=== PATIENT | male | born 1975 | race Caucasian/White ===

== ENCOUNTER → 2020-03-11 14:02 | Outpatient (CLI) | payer OTHER, SELFPAY ==
--- NOTE | 2020-03-11 14:08 | DI.US.S_ITS ---
PROCEDURE: US SCROTUM INDICATIONS: RIGHT GROIN LUMP TECHNIQUE: Real-time scanning was performed of the scrotum and testicles, with image documentation. Color and pulse Doppler interrogation was performed of both testicles. COMPARISON: None. FINDINGS: Right: Testicle is normal in size at 5.4 x 2.6 x 3.6 cm, and homogenous in echotexture. Epididymis is normal in overall size and morphology. Small hydrocele. No varicoceles. Overlying scrotal skin is normal in thickness. Left: Testicle is normal in size at 5.2 x 2.9 x 3.0 cm, and homogeneous in echotexture. Epididymis is normal in overall size and morphology. Small hydrocele. No varicoceles. Overlying scrotal skin is normal in thickness. Doppler: Color and pulse Doppler demonstrate normal and symmetric arterial flow in both testicles. Lower pelvic ventral wall hernia present containing fat with fascial defect estimated at 1.9 cm. IMPRESSION: 1. Small bilateral hydroceles; otherwise normal appearance of the testicles bilaterally. 2. Fat containing lower pelvic ventral wall hernia. Dictated by: Murali YOUNG Interpreted: Sharyn Liao MD on 03/11/2020 at 14:53 Approved by: Sharyn Liao M.D. on 03/11/2020 at 16:56
== END ==
PROVIDERS: PCP Family Medicine; Referring Provider Family Medicine; Visit Provider Family Medicine
DX: N43.3 Hydrocele, unspecified (principal); K43.9 Ventral hernia without obstruction or gangrene
CPT/HCPCS: 76870

== ENCOUNTER → 2020-07-10 11:00 | Outpatient (CLI) | payer OTHER, SELFPAY ==
[2020-07-10] MEDS: COVID-19 VACC, Ad26(JANSSEN)/PF 0.5 ML IM (11:07)
== END ==
PROVIDERS: PCP Family Medicine; Visit Provider Internal Medicine
DX: Z23 Encounter for immunization (principal)
CPT/HCPCS: 0031A; 91303

== ENCOUNTER 2021-11-18 10:34 | Emergency (ER) | payer OTHER, SELFPAY ==
[2021-11-18 10:58] VITALS: BP 126/77; PULSE 77; RESP 14; TEMP 37; O2SAT 99; BMI 33.9
--- NOTE | 2021-11-18 11:02 | DI.US.S_ITS ---
PROCEDURE: US SCROTUM INDICATIONS: RIGHT SCROTAL PAIN, EDEMA TECHNIQUE: Real-time scanning was performed of the scrotum and testicles, with image documentation. Color and pulse Doppler interrogation was performed of both testicles. COMPARISON: None. FINDINGS: Right: Testicle is normal in size at 5.5 x 3.3 x 2.7 cm, and homogenous in echotexture. Epididymis is heterogeneous in appearance. Small hydrocele. No varicoceles. Overlying scrotal skin is normal in thickness. Left: Testicle is normal in size at 5.9 x 2.9 x 2.7 cm, and homogeneous in echotexture. Epididymis is normal in overall size and morphology. Small hydrocele. No varicoceles. Overlying scrotal skin is normal in thickness. Doppler: Color and pulse Doppler demonstrate normal and symmetric arterial flow in both testicles. There is increased blood flow within the right epididymis compared to the left. IMPRESSION: 1. Asymmetric increased blood flow in the right epididymis. Findings suggesting right epididymitis. 2. Small bilateral hydroceles. 3. No testicular mass. Dictated by: Celestino Garcia M.D. on 11/18/2021 at 11:52 Approved by: Celestino Garcia M.D. on 11/18/2021 at 11:55
--- NOTE | 2021-11-18 12:04 | ED.MALEGU ---
HPI - Male Genitourinary <ION Gomez - Last Filed: 11/18/21 12:38> General Chief complaint: Urogenital-Male Stated complaint: Enlarged rt testicle- sent by [facility] Time Seen by Provider: 11/18/21 12:03 Source: patient Mode of arrival: Ambulatory History of Present Illness HPI Narrative: 46-year-old male, nonsmoker, presents to the emergency department with right testicular swelling and pain x1 day. Last reported intercourse was with his the night before the swelling began. Patient denies any trauma to that area. Patient does endorse a previous history of a right-sided inguinal hernia approximately 2 years ago that they did not think needed surgical repair at that time. Patient denies any dysuria, urinary frequency or urgency or penile discharge. Related Data Previous Rx's Medication Instructions Recorded doxycycline hyclate 100 mg capsule 100 mg PO BID Epididymitis 10 days 11/18/21 #20 caps Allergies Allergy/AdvReac Type Severity Reaction Status Date / Time No Known Drug Allergies Allergy Verified 11/18/21 11:02 Review of Systems <ION Gomez - Last Filed: 11/18/21 12:38> Review of Systems Narrative: Narrative: GENERAL: Denies chills, fatigue, fever, sweats. See HPI HEENT: Denies sinus pain, ear pain, sore throat, difficulty swallowing, dizziness. RESPIRATORY: Denies dyspnea, cough, wheezing, sputum. CARDIOVASCULAR: Denies chest pain, palpitations, edema. GASTROINTESTINAL: Denies nausea, vomiting, diarrhea, constipation. : Denies dysuria, frequency, incontinence, hematuria, urinary retention, flank pain. MSK: Denies weakness, joint pain, or bony pain. SKIN: Denies rash, skin lesions, or pruritis. NEUROLOGIC: Denies weakness, dizziness, headache, numbness, confusion. PSYCHIATRIC: No concerning psychosocial issues. Patient History <ION Gomez - Last Filed: 11/18/21 12:38> Social History Smoking Status: Unknown if ever smoked Smoking Status: Unknown if ever smoked alcohol intake frequency: a few times a week Substance Use Type: does not use Exam <ION Gomez - Last Filed: 11/18/21 12:38> Narrative Exam Narrative: Exam Narrative: GENERAL: This is a well-nourished, well-developed patient, in no acute distress HEAD: Atraumatic. Normocephalic. CARDIOVASCULAR: Regular rate and rhythm without murmurs, peripheral pulses intact, cap refill <2 sec. RESPIRATORY: Breath sounds equal and clear bilaterally. No wheezes, rales, or rhonchi. No cough. No increased respiratory effort. No accessory muscle use. GASTROINTESTINAL: Abdomen soft, non-tender, nondistended without guarding or rebound. No suprapubic pain. : Right-sided inguinal hernia. Right scrotum is significantly swollen compared to left side. Positive cremasteric reflex. Mild right testicular pain with palpation of the epididymis. MSK: Moves all extremities. Normal range of motion, no clubbing or edema. Neurovascularly intact. NEURO: A&O x 3. SKIN: Warm, dry, no rashes or lesions noted. Initial Vital Signs Initial Vital Signs: Vital Signs Temperature 98.6 F 11/18/21 10:58 Pulse Rate 77 11/18/21 10:58 Respiratory Rate 14 11/18/21 10:58 Blood Pressure 126/77 11/18/21 10:58 Pulse Oximetry 99 11/18/21 10:58 Oxygen Delivery Method 11/18/21 10:58 Reviewed Penis: normal penis Scrotum: inguinal hernia and scrotal swelling <Rosario Mai DO - Last Filed: 11/19/21 08:45> Initial Vital Signs Initial Vital Signs: Vital Signs Temperature 98.6 F 11/18/21 10:58 Pulse Rate 77 11/18/21 10:58 Respiratory Rate 14 11/18/21 10:58 Blood Pressure 126/77 11/18/21 10:58 Pulse Oximetry 99 11/18/21 10:58 Oxygen Delivery Method 11/18/21 10:58 Course <ION Gomez - Last Filed: 11/18/21 12:38> Orders Ordered: ED Orders 11/18/21 11:02 US scrotum Stat Vital Signs Vital signs: Vital Signs - 8 hr 11/18/21 10:58 11/18/21 12:12 11/18/21 12:13 Temperature 98.6 F Pulse Rate 77 71 Respiratory Rate 14 Blood Pressure 126/77 127/76 Pulse Oximetry 99 98 Oxygen Delivery Method Room Air 11/18/21 12:13 Temperature Pulse Rate 70 Respiratory Rate 16 Blood Pressure Pulse Oximetry 98 Oxygen Delivery Method Room Air <Rosario Mai DO - Last Filed: 11/19/21 08:45> Orders Ordered: ED Orders 11/18/21 11:02 US scrotum Stat Vital Signs Vital signs: Vital Signs - 8 hr 11/18/21 10:58 11/18/21 12:12 11/18/21 12:13 Temperature 98.6 F Pulse Rate 77 71 Respiratory Rate 14 Blood Pressure 126/77 127/76 Pulse Oximetry 99 98 Oxygen Delivery Method Room Air 11/18/21 12:13 Temperature Pulse Rate 70 Respiratory Rate 16 Blood Pressure Pulse Oximetry 98 Oxygen Delivery Method Room Air MDM - Male Genitourinary <ION Gomez - Last Filed: 11/18/21 12:38> Differential Diagnosis Differential diagnosis: Likely epididymitis and inguinal hernia Lab Data Labs: Urine Dip Bedside Urine Glucose Negative Bedside Urine Bilirubin - Negative Bedside Urine Ketone - Negative Urine Specific [place] 1.025 Bedside Urine Occult Blood - Negative Bedside Urine pH 6.0 Bedside Urine Protein - Negative Bedside Urine Urobilinogen - Negative Bedside Urine Nitrite - Negative Bedside Urine Leukocytes - Negative Esterase Imaging Data US - Scrotum: Radiologist's Impression: [place] [address] Ultrasound Report Signed Patient: Jorge Hunter MR#: [id number] : 1975 Acct:[id number] Age/Sex: 46 / M Date of Service: 11/18/21 Loc: ED Accession Number: [id number] ?? Procedure: US scrotum Ordering Provider: Rosario Mai D.O. PROCEDURE:? US SCROTUM ? INDICATIONS:? RIGHT SCROTAL PAIN, EDEMA ? TECHNIQUE:? Real-time scanning was performed of the scrotum and testicles, with image documentation.? Color and pulse Doppler interrogation was performed of both testicles.? ? COMPARISON:? None. ? FINDINGS:? ? Right:? Testicle is normal in size at 5.5 x 3.3 x 2.7 cm, and homogenous in echotexture.? Epididymis is heterogeneous in appearance.? Small hydrocele.? No varicoceles.? Overlying scrotal skin is normal in thickness.? ? Left:? Testicle is normal in size at 5.9 x 2.9 x 2.7 cm, and homogeneous in echotexture.? Epididymis is normal in overall size and morphology.? Small hydrocele.? No varicoceles.? Overlying scrotal skin is normal in thickness.? ? Doppler:? Color and pulse Doppler demonstrate normal and symmetric arterial flow in both testicles.? There is increased blood flow within the right epididymis compared to the left.? ? IMPRESSION:? 1. Asymmetric increased blood flow in the right epididymis.? Findings suggesting right epididymitis. ? ? 2. Small bilateral hydroceles. ? 3. No testicular mass.? ? Dictated by: Celestino Garcia M.D. on 11/18/2021 at 11:52 ? ? Approved by: Celestino Garcia M.D. on 11/18/2021 at 11:55 ? MDM Narrative Medical decision making narrative: 46-year-old male that presents to the emergency department with 1 day history right-sided testicular pain and scrotal swelling. Ultrasound is negative for testicular torsion but is positive for suspected epididymitis and hydrocele. Able to successfully reduce the inguinal hernia. Will start patient on a course of doxycycline and have him follow-up with General surgery for possible hernia repair. Patient is confident that this is not STD related and therefore will forego the chlamydia test at this time. Discussed plan of care and return precautions with patient, who was agreeable with course of action. <Rosario Mai, DO - Last Filed: 11/19/21 08:45> Lab Data Labs: Urine Dip Bedside Urine Glucose Negative Bedside Urine Bilirubin - Negative Bedside Urine Ketone - Negative Urine Specific [place] 1.025 Bedside Urine Occult Blood - Negative Bedside Urine pH 6.0 Bedside Urine Protein - Negative Bedside Urine Urobilinogen - Negative Bedside Urine Nitrite - Negative Bedside Urine Leukocytes - Negative Esterase Discharge Plan Departure Patient Disposition: Home Clinical Impression: Epididymitis, Inguinal hernia Instructions: DI for Groin Hernia, DI for Epididymitis Activity Restrictions/Additional Instructions: *You have been diagnosed with right-sided inguinal hernia and epididymitis. The ultrasound revealed that you do not have a testicular torsion, but suspects epididymitis. We will treat the epididymitis with a 10 day course of antibiotics. I recommend you follow-up with general surgery tomorrow for possible surgical repair of inguinal hernia. We were able to successfully reduce the hernia today. But if at any point if becomes hard, bulging, discolored and painful, please return to the emergency room immediately. *What to do: *Please continue to take your regular medications as directed. [x ] New medication prescriptions sent to your pharmacy: [[facility]] [ ] New medication written as a paper prescription [ ] No new medications given *Please follow up with your primary care provider in 2-3 days, call for an appointment. Let them know you were seen in the Emergency Department and that we ask that you be seen in follow up. We will electronically transmit a record of today's note if your PCP is in our system *If you do not have a primary care provider please contact the [facility] Resource line at [phone]. They will ask some questions about your medical history and help get you set up with a doctor in the community. ? Return to ER if you should have any new, worsening or concerning symptoms, such as worsening pain, severe headache, confusion, chest pain, difficulty breathing, fever greater than 101 F, shaking chills, persistent vomiting to the point that you cannot drink fluids, or other new or worsening symptoms. Prescriptions: New doxycycline hyclate 100 mg capsule 100 mg PO BID 10 Days Qty: 20 0RF Referrals: Veronica Winn MD [Primary Care Provider] - Farooq Carmona MD [Physician] - Visit Report Forms: Patient Portal/API <Rosario Mai DO - Last Filed: 11/19/21 08:45> Cosign ED Attending Isak Attestation: I was immediately available in the department for consultation. Documentation has been reviewed. I agree with assessment and plan.
[2021-11-18 12:12] VITALS: PULSE 71; O2SAT 98
[2021-11-18 12:13] VITALS: BP 127/76; PULSE 70; RESP 16; O2SAT 98
== END 2021-11-18 12:38 | disposition home or self-care (01) ==
PROVIDERS: Emergency Provider Registered Nurse; PCP Family Medicine
DX: N45.1 Epididymitis (principal); K40.90 Unilateral inguinal hernia, without obstruction or gangrene, not specified as recurrent
CPT/HCPCS: 76870; 81003; 99282; 99283

== ENCOUNTER → 2021-12-20 09:09 | Outpatient (CLI) | payer OTHER, SELFPAY ==
[2021-12-20 12:56] LABS: COVID19 -Nasal RAPID Negative (Negative)
== END ==
PROVIDERS: PCP Family Medicine; Visit Provider Surgery
DX: Z01.812 Encounter for preprocedural laboratory examination (principal); Z20.822 Contact with and (suspected) exposure to COVID-19
CPT/HCPCS: 87635; C9803

== ENCOUNTER 2021-12-21 06:55 | Day surgery (SDC) | payer OTHER, SELFPAY ==
[2021-12-16 08:31] VITALS: BMI 34.7
[2021-12-21] VITALS (7 sets, daily range): BP systolic 116–121; BP diastolic 75–81; PULSE 60–75; RESP 10–16; TEMP 36.1–36.6; O2SAT 95–97; BMI 34.7
[2021-12-21] MEDS: ACETAMINOPHEN 325 MG TABLET 975 MG PO (07:26)
[2021-12-21] MEDS: PREGABALIN 75 MG CAPSULE PO (07:27)
[2021-12-21] MEDS: LACTATED RINGERS 1,000 ML 42 ML IV (07:27)
--- NOTE | 2021-12-21 07:32 | PM.PREOP ---
Pre-operative Note COVID-19 COVID-19 status: Negative Result date/Date tested (Pos, Neg/Pending): 12/20/21 Interval Note History & Physical reviewed/Exam performed by Physician: Yes Changes to H&P: No ASA Class (for procedural sedation): II
[2021-12-21] MEDS: CEFAZOLIN 2 GM/100 ML PREMIX 100 ML IV (08:11)
--- NOTE | 2021-12-21 08:25 | SUR.OPER ---
Supine on padded OR bed, head on pillow, arms secured on padded arm boards at <90 degrees abduction, legs uncrossed, safety belt at thigh, tape over blanket over lower legs. Gel pad under bilateral heels.
[2021-12-21] MEDS: BUPIVACAINE 0.5% W/ EPI (PF) 30 ML VIAL INJ (08:33)
--- NOTE | 2021-12-21 09:34 | PM.OP.1 ---
Operative Date/Time/Diagnoses Date of procedure: 12/21/21 Time of procedure: 09:35 Pre-op diagnosis: Right inguinal hernia Post-op diagnosis: same Procedure & Clinicians Procedure: Open right inguinal hernia repair with mesh Same procedure as scheduled: Yes Surgeon: Farooq Carmona [employer] Senior Associate: Annemarie Suarez Operative Notes Procedure in detail: Preoperative antibiotic was administered. The patient was brought to the operating room and placed on the table in supine position general anesthesia was induced. The right groin was prepped and draped in the normal fashion and a time-out was performed. Roughly 10 mL of local anesthetic were injected into the skin and subcutaneous adipose tissue over the right groin. A 6 cm incision was made over the right inguinal canal. Dissection was carried down through the subcutaneous adipose tissue. We exposed the external oblique aponeurosis in the direction of the fibers. Additional local was injected deep to the aponeurosis. A 15 blade scalpel was used to dianne the external oblique aponeurosis. Metzenbaum scissors were used to carefully open the aponeurosis in the direction of the fibers taking care not to injure the underlying ilioinguinal nerve. We completely exposed the inguinal canal. The cord was dissected free from the inguinal ligament and floor of the inguinal canal and the external oblique aponeurosis was dissected off of the internal oblique taking care not to injure the hypogastric nerve. We encircled the cord with a [place] drain for retraction. There was of large bulky fat containing indirect hernia which was able to be reduced into the abdomen. There was no direct defect. We then placed a polypropylene mesh against the floor of the inguinal canal. The mesh was secured with multiple interrupted 3-0 Prolene sutures to the pubic tubercle and shelving edge of the inguinal ligament as well as to the conjoint tendon medially. We overlapped the tails to recreate an internal ring and secured the medial tail to the inguinal ligament with additional sutures. We injected some more local into the fatty tissue in the inguinal canal and cord. Finally, we removed the [place] drain and closed the external oblique fascia with a running 3-0 Vicryl suture. Skin was closed with interrupted 3-0 Vicryl dermal sutures and a running 4 Monocryl subcuticular stitch. EBL 15 mL The patient was awakened and brought to recovery room. Post-operative Condition: stable Disposition: PACU
[2021-12-21] MEDS: OXYCODONE IR 5 MG TABLET PO (09:36)
--- NOTE | 2021-12-21 10:03 | SUR.PHASEII ---
Applesauce given, resting comfortably, r groin c/d/i.
--- NOTE | 2021-12-21 10:19 | SUR.PHASEII ---
Left when ready and left in stable condition.
== END 2021-12-21 10:19 | disposition home or self-care (01) ==
PROVIDERS: PCP Family Medicine; Referring Provider Surgery; Visit Provider Surgery
PROC: (CPT 49505; principal; 2021-12-21 08:00)
DX: K40.90 Unilateral inguinal hernia, without obstruction or gangrene, not specified as recurrent (principal)
CPT/HCPCS: 49505; J0690; J1100; J2250; J2405; J2704; J3010